=== PATIENT | male | born 1985 | race Caucasian/White ===

== ENCOUNTER → 2020-12-13 14:47 | Outpatient (CLI) | payer OTHER, SELFPAY ==
--- NOTE | ~2020-12-13 | XR_ITS ---
XR pelvis 1-2V DATE: 12/13/2020 15:51 INDICATION: Left sacroiliac pain TECHNIQUE: AP pelvis COMPARISON: None FINDINGS: No pelvic fracture or bone destruction. The pubic symphysis and sacroiliac joints are intac t. Bilateral calcified pelvic phleboliths. IMPRESSION: No significant abnormality Reviewed, dictated and finalized at location A. IMPRESSION: No significant abnormality
--- NOTE | ~2020-12-13 | XR_ITS ---
XR lumbar spine 2-3V DATE: 12/13/2020 15:51 INDICATION: Low back pain, left sacroiliac pain TECHNIQUE: AP, lateral, coned lateral lumbosacral views COMPARISON: None FINDINGS: Normal alignment of the lumbar spine. No fracture or bone destruction or spondylolisthesis. The lumbar pedicles are intact. There is mild to moderate loss of interspace height and mild spurring at L3-4. There is mild to moderate loss of interspace height at L4-5. Lumbar and lumbosacral interspaces appea r relatively well preserved otherwise. The sacroiliac joints appear normal. IMPRESSION: Mild to moderate degenerative disc disease at L3-4 and L4-5 Reviewed, dictated and finalized at location A.
--- NOTE | ~2020-12-13 | XR_ITS ---
XR thoracic spine 2V DATE: 12/13/2020 15:51 INDICATION: Mid back pain TECHNIQUE: AP, lateral, swimmer views COMPARISON: None FINDINGS: Normal alignment of the thoracic spine. No fracture or dislocation or bone destruction. The thoracic pedicles are intact. No paraspinal soft tissue thickening. No scoliosis. IMPRESSION: Normal examination Reviewed, dictated and finalized at location A. IMPRESSION: Normal examination
--- NOTE | ~2020-12-13 | XR_ITS ---
XR_CERV2-3V_CR DATE: 12/13/2020 15:51 INDICATION: Neck pain TECHNIQUE: AP, open-mouth, lateral views COMPARISON: None FINDINGS: There is straightening of the cervical spine. C1 and C2 are normally aligned and the odonto id process is intact. No fracture or dislocation or locked facet or prevertebral soft tissue swelling . Cervical interspaces appear relatively preserved. IMPRESSION: Straightening; otherwise no significant abnormality Reviewed, dictated and finalized at Location A. Reviewed, dictated and finalized at location A.
== END ==
PROVIDERS: Visit Provider Chiropractor
DX: M54.2 Cervicalgia (principal); M54.6 Pain in thoracic spine; M54.5 Low back pain; M51.36 Other intervertebral disc degeneration, lumbar region; M53.82 Other specified dorsopathies, cervical region
CPT/HCPCS: 72040; 72070; 72100; 72170